=== PATIENT | male | born 1995 | race Caucasian/White ===

== ENCOUNTER 2017-02-18 18:36 | Emergency (ER) | payer OTHER ==
[2017-02-18 18:49] VITALS: RESP 16; TEMP 98.1
--- NOTE | 2017-02-18 19:56 | CPEKG ---
Heart Rate: 64 RR Interval: 938 P-R Interval: 132 QRSD Interval: 90 QT Interval: 420 QTC Interval: 434 P [place]: 46 QRS [place]: 87 T Wave [place]: 10 EKG Severity - BORDERLINE ECG - EKG Impression: SINUS RHYTHM EKG Impression: INFERIOR Q WAVES, PROBABLY NORMAL VARIATION EKG Impression: ST ELEV, PROBABLE NORMAL EARLY REPOL PATTERN Electronically Signed By: Clementina Angelo 18-Feb-2017 23:53:08
[2017-02-18] MEDS ORDERED: IPRATROPIUM/ALBUTEROL 3 ML DEYVIAL IH ONE (20:03)
[2017-02-18 20:09] VITALS: O2SAT 95
--- NOTE | 2017-02-18 20:29 | EDPHY ---
HPI/HX/ROS/PE/MDM Narrative: CHIEF COMPLAINT: Chest pain on exertion HISTORY OF PRESENT ILLNESS: The patient is an active 21 y/o male complaining of chest pain on exertion for the last few days. During water polo practice he developed a dull ache in his chest that was worse with exertion and deep inhalation. The pain lingers after practice before dissipating a few hours later. He noticed that during practice he is more short of breath than usual. He notes that he had a cold a few weeks ago an the cough is still lingering. The cough is mostly nonproductive with some yellow mucus. He denies fever, pain on one side of his body, numbness or tingling, history of cardiac problems, fainting, heart disease, or any other associated symptoms. He denies recent trauma or other precipitating factors. He reports a history of exercise induced asthma that is worsened by coughs and colds. No fever, chills, palpitations, vomiting, diarrhea, urinary complaints, headache , lightheadedness. REVIEW OF SYSTEMS: Aside from elements discussed in the HPI, a comprehensive 10-point review of systems was reviewed and is negative. PAST MEDICAL HISTORY: Exercise induced asthma SOCIAL HISTORY: Student, plays competitive water polo, infrequent marijuana user. VITAL SIGNS: see nurse's notes. GENERAL: Well-developed, well-nourished, in no acute distress. HEENT: Atraumatic Eyes: PERRL, EOMI, no conjunctival injection. Ears: TM clear bilaterally. Nose: No discharge. Mouth: moist mucous membranes. Pharynx: no erythema, no exudates, no swelling, no abscess. Uvula is midline. NECK: Supple, no adenopathy, no meningismus, no tenderness. Negative Kernig's and Brudzinski's. LUNGS: Slight wheeze in the upper lobes bilaterally, clear to auscultation bilaterally, no rhonchi or rales. CARDIAC: Regular rate and rhythm, no rubs, murmurs or gallops. No reproducible tenderness. No crepitus. ABDOMEN: Soft, nontender, bowel sounds normal. BACK: No CVA tenderness. EXTREMITIES: Normal, no edema, FROM. NEURO: Alert and oriented, grossly nonfocal. SKIN: Warm and dry, no rash. PSYCHIATRIC: Normal mentation, no agitation. Portions of this note were transcribed by a biomedical equipment support specialist. I personally performed a history, physical exam, medical decision making, and confirmed accuracy of information the transcribed note. ED Course: 12-LEAD EKG: Please see the full report in [facility]. My interpretation: Normal sinus rhythm. X-ray: Chest x-ray was obtained. I viewed the images myself on the PACS system. My interpretation of the images is: possible bronchitis. The radiologist interpretation is normal. I discussed the x-ray findings with the patient. The patient is a healthy 21 y/o male complaining of chest pain that is worse with exertion and deep inhalation accompanied by shortness of breath during sustained activity onset a few days ago. Symptoms persist for a few hours after exertion before dissipating. He reports having a cold a few weeks ago and that the cough is lingering. He denies any other symptoms or precipitating factors. 2030: EKG normal, chest X-ray pending radiology report. Patient received an albuterol nebulizer treatment while in the emergency department. He reports following this at his chest discomfort been significantly decreased and his sensation of chest tightness has been significantly decreased. Patient will be discharged with an albuterol meter dose inhaler to use prior to water polo practice, azithromycin for ongoing lingering cough and bronchitis symptoms, and a short course of prednisone. MDM: Differential diagnosis for the patient's presenting complaint was considered including but not limited to pulmonary infectious processes, pericarditis, pleuritis, pulmonary emboli, congestive heart failure, cardiac causes, coronary artery disease. - Data Points Imaging Results: IMPRESSION: Normal chest x-ray. Dictated By: Geoffrey Sanchez MD Imaging: I viewed and interpreted images myself Medications Given: Discontinued Medications Albuterol Sulfate (Proventil Inh Prepack) 1 mdi TAKEHOME EDNOW ONE Stop: 02/18/17 20:50 Last Admin: 02/18/17 20:59 Dose: 1 mdi Albuterol/Ipratropium (Duoneb) 3 ml IH EDNOW ONE Stop: 02/18/17 20:04 Last Admin: 02/18/17 20:22 Dose: 3 ml Azithromycin (Zithromax) 500 mg PO EDNOW ONE PRN Reason: Protocol Stop: 02/18/17 20:49 Last Admin: 02/18/17 21:00 Dose: 500 mg Prednisone (Prednisone) 60 mg PO EDNOW ONE Stop: 02/18/17 20:49 Last Admin: 02/18/17 21:00 Dose: 60 mg General Time Seen by Provider: 02/18/17 20:12 Initial Vital Signs: Initial Vital Signs Temperature (C) 36.7 C 02/18/17 18:45 Heart Rate 66 02/18/17 18:45 Respiratory Rate 16 02/18/17 18:45 Blood Pressure 159/80 H 02/18/17 18:45 O2 Sat (%) 97 02/18/17 18:45 O2 Delivery Mode Room Air Allergies/Adverse Reactions: No Known Allergies Allergy (Unverified 02/18/17 18:47) Home Medications: Medication Instructions Recorded Azithromycin [Zithromax] 250 mg PO DAILY #4 tab 02/18/17 predniSONE [prednisone 10mg (RX)] 40 mg PO DAILY 3 Days tab 02/18/17 Departure - Departure Disposition: Home, Routine, Self-Care Clinical Impression: Bronchospasm with bronchitis, acute Chest pain Qualifiers: Chest pain type: chest pain on breathing Qualified Code(s): R07.1 - Chest pain on breathing; R07.81 - Pleurodynia Condition: Good Instructions: Albuterol (By breathing), Prednisone (By mouth), Azithromycin ( By mouth), Acute Bronchitis (ED), Bronchospasm (ED) Additional Instructions: Please use the metered dose inhaler to help control your chest tightness and shortness of breath. You been given a prescription of prednisone. Please take this as directed for the next 2 days starting tomorrow. You been given a prescription of azithromycin. Please begin taking this as directed. I recommend Ibuprofen (Motrin, Advil) or Naproxen Sodium (Aleve) for pain and anti-inflammatory effects. You may take either one, but do not take both. Your dose is: Ibuprofen 600 mg every 6-8 hours with food. OR Naproxen Sodium (Aleve) 220 mg every 12 hours. Seek care urgently or follow up at the emergency department if he develop a fever, worsening symptoms despite the above treatment, shortness of breath, chest pain, vomiting, or other concerns. Referrals: NONE *PRIMARY CARE P,. [Primary Care Provider] - As per Instructions Prescriptions: Azithromycin [Zithromax] 250 mg PO DAILY #4 tab predniSONE [prednisone 10mg (RX)] 40 mg PO DAILY 3 Days tab Report Scribed for: Clementina Angelo Report Scribed by: Chani Mondragon Date of Report: 02/18/17 Time of Report: 20:29
[2017-02-18] MEDS ORDERED: predniSONE 20 MG TAB PO ONE (20:48)
[2017-02-18] MEDS ORDERED: AZITHROMYCIN 250 MG TAB PO ONE (20:48)
[2017-02-18] MEDS ORDERED: ALBUTEROL INH PREPACK MDI TAKEHOME ONE (20:49)
[2017-02-18 21:07] VITALS: BP 138/85; PULSE 75
== END 2017-02-18 21:06 | disposition home or self-care (01) ==
DX: J20.9 Acute bronchitis, unspecified (principal); J45.909 Unspecified asthma, uncomplicated